=== PATIENT | female | born 1995 | race Caucasian/White ===

== ENCOUNTER 2023-07-18 09:00 | Outpatient (RCR) | payer OTHER, MEDICAID, SELFPAY | END 2023-07-22 08:50 | disposition home or self-care (01) | LOC: HO.PTCHIC 09:00 | PROVIDERS: Visit Provider Internal Medicine | DX: M54.50 Low back pain, unspecified (principal); M79.606 Pain in leg, unspecified | CPT/HCPCS: 97110; 97161 ==